=== PATIENT | female | born 1990 | race Caucasian/White ===

== ENCOUNTER 2020-07-01 20:25 | Emergency (ER) | payer OTHER, MEDICAID, SELFPAY ==
[2020-07-01 20:30] VITALS: BP 129/80; PULSE 82; RESP 15; TEMP 36.8; O2SAT 100; BMI 41.7
[2020-07-01 21:18] LABS: COVID19 -Nasal RAPID Negative (Negative)
--- NOTE | 2020-07-01 21:27 | ED.GENADULT ---
HPI - General Adult General Chief complaint: Upper Respiratory Symptoms Stated complaint: says has streep, chills, body aches Time Seen by Provider: 07/01/20 20:35 Source: patient Mode of arrival: Ambulatory Limitations: no limitations Related Data Allergies Allergy/AdvReac Type Severity Reaction Status Date / Time morphine Allergy Verified 07/01/20 20:32 Patient History Social History Smoking Status: Unknown if ever smoked Smoking Status: Unknown if ever smoked alcohol intake frequency: holidays/special occasions only Substance Use Type: does not use Exam Initial Vital Signs Initial Vital Signs: Vital Signs Temperature 98.3 F 07/01/20 20:30 Pulse Rate 82 07/01/20 20:30 Respiratory Rate 15 07/01/20 20:30 Blood Pressure 129/80 07/01/20 20:30 Pulse Oximetry 100 07/01/20 20:30 Course Orders Ordered: ED Orders 07/01/20 20:59 COVID19 Stat Vital Signs Vital signs: Vital Signs - 8 hr 07/01/20 20:30 Temperature 98.3 F Pulse Rate 82 Respiratory Rate 15 Blood Pressure 129/80 Pulse Oximetry 100 Medical Decision Making Lab Data Labs: Lab Results 07/01/20 Range/Units 20:30 COVID-19 PCR Negative (Negative)
--- NOTE | 2020-07-01 21:27 | ED.GENADULT ---
HPI - General Adult General Chief complaint: Upper Respiratory Symptoms Stated complaint: says has streep, chills, body aches Time Seen by Provider: 07/01/20 20:35 Source: patient Mode of arrival: Ambulatory Limitations: no limitations History of Present Illness HPI narrative: 30-year-old female who 2 days ago was diagnosed with strep throat off of a rapid strep test who has been on antibiotics here for evaluation of worsening symptoms. She describes sore throat. Problems taking a deep breath. Chills body aches. Has not been taking Tylenol or ibuprofen for any of her symptoms. Related Data Allergies Allergy/AdvReac Type Severity Reaction Status Date / Time morphine Allergy Verified 07/01/20 20:32 Review of Systems Constitutional Constitutional: Denies fever(s) ENT Ears, Nose, Mouth, and Throat: Reports sore throat Cardiovascular Cardiovascular: Denies chest pain Respiratory Comments: Shortness of breath Integumentary/Breasts Skin/Breast: Denies rash Neurologic Neurologic: Denies behavioral changes Psychiatric Psychiatric: Denies behavioral changes Hematologic/Lymphatic Hematologic/Lymphatic: Denies easy bleeding and Denies easy bruising Patient History Medical History Healthy adult Social History Smoking Status: Unknown if ever smoked Smoking Status: Unknown if ever smoked alcohol intake frequency: holidays/special occasions only Substance Use Type: does not use Exam Initial Vital Signs Initial Vital Signs: Vital Signs Temperature 98.3 F 07/01/20 20:30 Pulse Rate 82 07/01/20 20:30 Respiratory Rate 15 07/01/20 20:30 Blood Pressure 129/80 07/01/20 20:30 Pulse Oximetry 100 07/01/20 20:30 Const General: cooperative and comfortable Limitations: mental status not altered HENMT Head: normal to inspection and normocephalic Mouth: oral mucosae normal Throat: tonisls abnormal (Large tonsils but midline) and uvula midline Neck Lymphatic: No lymphadenopathy Resp Effort & Inspection: normal respiratory effort Auscultation: clear to auscultation bilaterally Cardio Rate: regular rate Neuro General: patient alert, patient awake and patient oriented x3 Course Orders Ordered: ED Orders 07/01/20 20:30 COVID19 Stat Discontinued Medications Dexamethasone (Dexamethasone 10 Mg/Ml Vial) 10 mg PO NOW ONE Stop: 07/01/20 21:28 Last Admin: 07/01/20 21:48 Dose: 10 mg Documented by: NATA Ketorolac Tromethamine (Ketorolac 60 Mg/2 Ml Vial) 30 mg IM NOW ONE Stop: 07/01/20 21:28 Last Admin: 07/01/20 21:49 Dose: 30 mg Documented by: NATA Vital Signs Vital signs: Vital Signs - 8 hr 07/01/20 20:30 07/01/20 22:03 Temperature 98.3 F Pulse Rate 82 82 Respiratory Rate 15 12 Blood Pressure 129/80 123/81 Pulse Oximetry 100 100 Medical Decision Making Lab Data Lab results reviewed: Yes I reviewed the patient's lab results. Labs: Lab Results 07/01/20 Range/Units 20:30 COVID-19 PCR Negative (Negative) MDM Narrative Medical decision making narrative: She has no respiratory distress. Uvula is midline. Tonsils are enlarged however of low suspicion for peritonsillar abscess. Currently on antibiotics for the strep throat. Feel we can hold on any radiologic studies. We did discuss use of Tylenol and ibuprofen for her symptoms. Was given Toradol and Decadron here in the ER. She was given return precautions. She expressed understanding and agreement. Discharge Plan Departure Patient Disposition: Home Clinical Impression: Acute streptococcal pharyngitis Instructions: DI for Strep Throat Activity Restrictions/Additional Instructions: Recommend that you continue with Tylenol and ibuprofen for body aches and fevers. The dose of steroids you received here in the emergency department does take a couple hours to kick in but should help your symptoms. Be sure to increase your fluid intake. Return to the emergency department for any new or worsening symptoms
[2020-07-01] MEDS: DEXAMETHASONE 10 MG/ML VIAL PO (21:48)
[2020-07-01] MEDS: KETOROLAC 60 MG/2 ML VIAL 30 MG IM (21:49)
[2020-07-01 22:03] VITALS: BP 123/81; PULSE 82; RESP 12; O2SAT 100
== END 2020-07-01 22:06 | disposition home or self-care (01) ==
PROVIDERS: Emergency Provider Emergency Medicine
DX: J02.0 Streptococcal pharyngitis (principal)
CPT/HCPCS: 87635; 96372; 99281; 99283; J1100; J1885

== ENCOUNTER 2020-10-07 18:13 | Emergency (ER) | payer OTHER, MEDICAID, SELFPAY ==
[2020-10-07 18:27] VITALS: BP 125/91; PULSE 79; RESP 12; TEMP 36.7; O2SAT 100; BMI 40.8
--- NOTE | 2020-10-07 18:33 | DI.RAD.S_ITS ---
PROCEDURE: XR FOOT LT MIN 3V INDICATIONS: left foot pain stepped wrong at work TECHNIQUE: 3 views of the foot were acquired. COMPARISON: None. FINDINGS: Bones: No acute fractures or dislocations. No suspicious bony lesions. Soft tissues: There is soft tissue swelling of the left forefoot. No tibiotalar joint effusion. Achilles tendon appears normal. IMPRESSION: Left forefoot soft tissue swelling without underlying fracture or dislocation. If there is persistent clinical concern for occult fracture given adequate mechanism of injury, consider repeat imaging in 10-14 days. Dictated by: Cristino Gutierres M.D. on 10/07/2020 at 19:06 Approved by: Cristino Gutierres M.D. on 10/07/2020 at 19:07
--- NOTE | 2020-10-07 18:37 | ED.LOWEXIN ---
HPI - Extremity Injury (Lower) General Chief Complaint: Extremity Injury, Lower Stated Complaint: injure left foot at work Time Seen by Provider: 10/07/20 18:15 Source: patient Mode of arrival: Ambulatory Limitations: no limitations History of Present Illness HPI Narrative: Patient is a 30-year-old female here for evaluation of pain on the top of her left foot. She states she was at work at the time when she lifted a box of soda and stepped wrong and had pain on the top of her left foot. Occurred earlier today. Has discomfort with walking. Has not tried anything for symptoms prior to arrival. Related Data Allergies Allergy/AdvReac Type Severity Reaction Status Date / Time morphine Allergy Intermediate Verified 10/07/20 18:30 Review of Systems Constitutional Constitutional: Denies fever(s) Musculoskeletal Musculoskeletal: Denies tingling Comments: Left foot pain Integumentary/Breasts Skin/Breast: Denies lesions and Denies rash Neurologic Neurologic: Denies tingling Patient History Medical History Healthy adult Social History Smoking Status: Former smoker Smoking Status: Former smoker alcohol intake frequency: holidays/special occasions only Substance Use Type: does not use Exam Initial Vital Signs Initial Vital Signs: Vital Signs Temperature 98.0 F 10/07/20 18:27 Pulse Rate 79 10/07/20 18:27 Respiratory Rate 12 10/07/20 18:27 Blood Pressure 125/91 H 10/07/20 18:27 Pulse Oximetry 100 10/07/20 18:27 Const General: cooperative and comfortable Limitations: mental status not altered HENCT Head: normal to inspection and normocephalic Cardio Pulses: dorsalis pedis present on the left Skin Lesions: no lesions Rashes: no rashes Neuro General: patient alert and patient awake Cognition: normal cognition Speech: speech normal Sensory Exam: no sensory deficits noted Extrem Other: Patient has tenderness to palpation throughout her left foot but specifically over the dorsum of the midfoot. Psych Appearance: well kempt Procedures Orthopedic Splinting/Casting Injury #1: Side: left Lower Extremity Injury Location: foot Lower Extremity Immobilizer: Brody wrap Post splinting neuro exam: intact Post splinting vascular exam: intact Placed by: Nursing Course Orders Ordered: ED Orders 10/07/20 18:33 XR foot LT min 3V Stat Vital Signs Vital signs: Vital Signs - 8 hr 10/07/20 18:27 10/07/20 19:42 Temperature 98.0 F Pulse Rate 79 72 Respiratory Rate 12 Blood Pressure 125/91 H 117/66 [address]ulse Oximetry [address] [facility] - Extremity Injury (Lower) Imaging Data Extremity x-ray #1: Radiologist's Impression: [address] [id number] ReportSigned Patient: Jasmina Finn AnneMR#: [id number]: 1990Acct:[id number]/Sex: 30 / FDate of Service: 10/07/20Loc: EDAccession Number: [id number] Procedure: XR foot LT min 3V Ordering Provider: Willis Madden D.O. PROCEDURE: XR FOOT LT MIN 3V INDICATIONS: left foot pain stepped wrong at work TECHNIQUE: 3 views of the foot were acquired. COMPARISON: None. FINDINGS: Bones: No acute fractures or dislocations. No suspicious bony lesions. Soft tissues: There is soft tissue swelling of the left forefoot. No tibiotalar joint effusion. Achilles tendon appears normal. IMPRESSION: Left forefoot soft tissue swelling without underlying fracture or dislocation. If there is persistent clinical concern for occult fracture given adequate mechanism of injury, consider repeat imaging in 10-14 days. Dictated by: Cristino Gutierres M.D. on 10/07/2020 at 19:06 Approved by: Cristino Gutierres M.D. on 10/07/2020 at 19:[address] [facility] Narrative Medical decision making narrative: No fractures on the x-ray, is neurovascularly intact, Brody bandage provided for comfort, patient can ambulate as needed. She was given return precautions and follow-up instructions. She expressed understanding and agreement. Discharge Plan Departure Patient Disposition: Home Clinical Impression: Acute pain of left foot Instructions: How To Perform RICE (Rest, Ice, Compress, Elevate) Activity Restrictions/Additional Instructions: There were no fractures noted on the x-rays. You can walk on your foot as tolerated. I recommend they use the Brody bandage as needed and for comfort. Keep your foot elevated. You can also ice your foot. You can use anti-inflammatories such as Motrin/Naprosyn/ibuprofen. Contact your primary provider for follow-up.
[2020-10-07 19:42] VITALS: BP 117/66; PULSE 72; O2SAT 100
== END 2020-10-07 19:43 | disposition home or self-care (01) ==
PROVIDERS: Emergency Provider Emergency Medicine
DX: M79.672 Pain in left foot (principal); Y99.0 Civilian activity done for income or pay
CPT/HCPCS: 73630; 99283

== ENCOUNTER 2021-01-17 21:57 | Emergency (ER) | payer OTHER, MEDICAID, SELFPAY ==
[2021-01-17 22:18] VITALS: BP 158/63; PULSE 99; RESP 20; TEMP 36.5; O2SAT 97; BMI 41.1
[2021-01-17] MEDS: HYDROCODONE/ACET 5/325 PREPACK 1 BOTTLE MISC (23:45)
[2021-01-17] MEDS: DOXYCYCLINE HYCLATE 100 MG TABLET PO (23:45)
--- NOTE | 2021-01-17 23:48 | ED_ITS ---
HPI - Skin/Abscess/Foreign Bdy General Chief complaint: Skin/Abscess/Foreign Body Stated complaint: Abscess Time Seen by Provider: 01/17/21 23:20 Source: patient Mode of arrival: Ambulatory Limitations: no limitations History of Present Illness HPI narrative: 30-year-old female former smoker with noncontributory medical history presents with the painful ?lump? and deep on her left buttock this been there for the past few days. She has tried squeezing it getting any drainage out of it but has thus far been unsuccessful. She denies any pain with bowel movement. She has no fever chills and denies any history of abscess. She has increased pain with palpation and while sitting and improvement with rest. She has no systemic findings such as fever, chills nor nausea or vomiting MD complaint: abscess/boil Onset (ago): day(s) Tetanus up to date: yes Location: buttocks Severity: mild Quality: burning Pain Consistency: constant Relieving factors: rest Exacerbating factors: palpation Context: none Associated symptoms: denies other symptoms Treatments prior to arrival: none Related Data Previous Rx's Medication Instructions Recorded doxycycline hyclate 100 mg PO BID #20 tab 01/17/21 Allergies Allergy/AdvReac Type Severity Reaction Status Date / Time morphine Allergy Intermediate Verified 10/07/20 18:30 Review of Systems Constitutional Constitutional: Denies chills, Denies fatigue, Denies fever(s), Denies frequent falls, Denies lethargy and Denies weakness Eyes Eyes: Denies change in vision, Denies eye discharge, Denies irritation and Denies loss of vision ENT Ears, Nose, Mouth, and Throat: Denies change in voice, Denies dizziness, Denies neck pain, Denies sore throat and Denies throat swelling Cardiovascular Cardiovascular: Denies chest pain, Denies irregular heart rhythm, Denies lightheadedness, Denies palpitations, Denies dyspnea, Denies dyspnea on exertion and Denies orthopnea Respiratory Respiratory: Denies cough, Denies dyspnea, Denies dyspnea on exertion and Denies wheezing Gastrointestinal Gastrointestinal: Denies abdominal pain, Denies change in bowel habits, Denies diarrhea, Denies nausea and Denies vomiting Musculoskeletal Musculoskeletal: Denies neck pain and Denies numbness Integumentary/Breasts Skin/Breast: Denies pruritus, Denies erythema, Denies rash, Reports skin pain, Reports skin swelling and Reports wounds Neurologic Neurologic: Denies behavioral changes, Denies confusion, Denies dizziness, Denies frequent falls, Denies loss of vision, Denies numbness and Denies weakness Psychiatric Psychiatric: Denies anxiety, Denies behavioral changes, Denies confusion, Denies depression, Denies homicidal ideation and Denies suicidal ideation Endocrine Endocrine: Denies fatigue, Denies flushing and Denies palpitations Hematologic/Lymphatic Hematologic/Lymphatic: Denies easy bruising Allergic/Immunologic Allergic/Immunologic: Denies urticaria, Denies throat swelling and Denies wheezing Patient History Medical History Healthy adult Social History Smoking Status: Former smoker Smoking Status: Former smoker alcohol intake frequency: holidays/special occasions only Substance Use Type: marijuana Exam Narrative Exam Narrative: GEN: AOx3 and in mild distress EYES: Pupils are equal, round, and reactive to light and accommodation. Extraoccular muscles are intact bilaterally. There is no subconjunctival hemorrhage or exudate. CHEST: Lungs are clear to auscultation bilaterally and free of wheezes, rales, or rhonchi. Heart rate is regular rhythm, there are no murmurs, clicks, rubs, or gallops. There is no chest wall tenderness. ABD: Abdomen is soft and nontender. There is no guarding or rebound. Bowel sounds are normal in all 4 quadrants. There is no mass or organomegaly. RECTAL: No hernia noted, tender 1 x 3 cm lesion on left buttock with out fluctuance or drainage, no surrounding erythema or induration, no hernia, no involvement of the rectum EXT: Full painless ROM of all extremities with no loss of sensation or strength. SKIN: Warm, pink, and dry. No erythema or rash Initial Vital Signs Initial Vital Signs: Vital Signs Temperature 97.7 F 01/17/21 22:18 Pulse Rate 99 H 01/17/21 22:18 Respiratory Rate 20 01/17/21 22:18 Blood Pressure 158/63 H 01/17/21 22:18 Pulse Oximetry 97 01/17/21 22:18 Course Orders Ordered: Discontinued Medications Hydrocodone Bitart/Acetaminophen (Hydrocodone/Acet 5/325 Prepack) 1 bottle MISC SEEINSTR ONE Stop: 01/17/21 23:38 Last Admin: 01/17/21 23:45 Dose: 1 bottle Documented by: SHAUN Doxycycline Hyclate (Doxycycline Hyclate 100 Mg Tablet) 100 mg PO NOW ONE Stop: 01/17/21 23:38 Last Admin: 01/17/21 23:45 Dose: 100 mg Documented by: SHAUN Vital Signs Vital signs: Vital Signs - 8 hr 01/17/21 22:18 01/17/21 23:58 Temperature 97.7 F Pulse Rate 99 H 89 Respiratory Rate 20 16 Blood Pressure 158/63 H 131/74 Pulse Oximetry 97 100 Discharge Plan Departure Patient Disposition: Home Clinical Impression: Abscess of skin or subcutaneous tissue Qualifiers: Site of cutaneous abscess: buttock Qualified Code(s): L02.31 - Cutaneous abscess of buttock Instructions: DI for Skin Abscess Activity Restrictions/Additional Instructions: *You have been diagnosed with [superficial abscess left buttock] *What to do: *Please continue to take your regular medications as directed. [ x] New medication prescriptions sent to your pharmacy: [[facility] in [facility] ] [ ] New medication written as a paper prescription [ ] No new medications given *Please follow up with your primary care provider in 2-3 days, call for an appointment. Let them know you were seen in the Emergency Department and that we ask that you be seen in follow up. We will electronically transmit a record of today's note if your PCP is in our system *If you do not have a primary care provider please contact the [facility] Resource line at [phone]. They will ask some questions about your medical history and help get you set up with a doctor in the community. *Return to Emergency Department if you should have any new, worsening or concerning symptoms, such as [fever greater than 101 F, shaking chills, worsening pain, persistent vomiting or other bothersome symptoms] Prescriptions: New doxycycline hyclate 100 mg tablet 100 mg PO BID Qty: 20 RF: 0
[2021-01-17 23:58] VITALS: BP 131/74; PULSE 89; RESP 16; O2SAT 100
--- NOTE | 2021-01-17 23:58 | PC.NURSE ---
Electronic prescription did not transmit. Prescription called in to [facility].
== END 2021-01-17 23:50 | disposition home or self-care (01) ==
PROVIDERS: Emergency Provider Emergency Medicine
DX: L02.31 Cutaneous abscess of buttock (principal)
CPT/HCPCS: 99283

== ENCOUNTER 2021-02-22 19:23 | Emergency (ER) | payer OTHER, MEDICAID, SELFPAY ==
[2021-02-22 19:31] VITALS: BP 118/67; PULSE 85; RESP 18; TEMP 36.6; O2SAT 100; BMI 41.5
--- NOTE | 2021-02-22 19:36 | DI.RAD.S_ITS ---
PROCEDURE: XR KNEE LT 3V INDICATIONS: pain TECHNIQUE: 3 views of the knee were acquired. COMPARISON: None. FINDINGS: Bones: No fractures or dislocations. No suspicious bony lesions. Soft tissues: Small to moderate suprapatellar joint effusion is seen. No suspicious soft tissue calcifications. IMPRESSION: No acute left knee fracture or dislocation. Small to moderate suprapatellar joint effusion. Dictated by: Bruce Keller M.D. on 02/22/2021 at 20:50 Approved by: Bruce Keller M.D. on 02/22/2021 at 20:50
--- NOTE | 2021-02-22 20:02 | ED.LOWEXIN ---
HPI - Extremity Injury (Lower) General Chief Complaint: Extremity Injury, Lower Stated Complaint: lt knee pain, no known injury Time Seen by Provider: 02/22/21 19:57 Source: patient Mode of arrival: Ambulatory Limitations: no limitations History of Present Illness HPI Narrative: Patient here with boyfriend complains of left knee pain. Ongoing for 1 week. Patient is on her feet a lot at work. Also has kids at home that she does a lot of bending and twisting at the knee. Ongoing pain worsened today felt worsening. No numbness tingling weakness to the foot. Painful with active flexion extension of the knee. No prior injury to the knee or surgery or imaging. Related Data Previous Rx's Medication Instructions Recorded doxycycline hyclate 100 mg tablet 100 mg PO BID #20 tab 01/17/21 hydrocodone 5 mg-acetaminophen 325 1 tab PO Q6H PRN #7 tab 02/22/21 mg tablet ondansetron 4 mg disintegrating 4 mg PO Q8H PRN #10 tab 02/22/21 tablet Allergies Allergy/AdvReac Type Severity Reaction Status Date / Time morphine Allergy Intermediate Verified 02/22/21 19:31 Review of Systems Review of Systems Narrative: GENERAL: Denies chills, fatigue, malaise, fever, sweats. MUSCULOSKELETAL: denies muscle complains bony pain SKIN: Denies rash, skin lesions NEUROLOGIC: Denies weakness, numbness Patient History Medical History Healthy adult Social History Smoking Status: Former smoker Smoking Status: Former smoker alcohol intake frequency: holidays/special occasions only Substance Use Type: marijuana Exam Narrative Exam Narrative: GENERAL: in no distress, not toxic not dyspneic HEAD: Normocephalic. EXTREMITIES: No gross deformities. Examination left lower extremity. Shoe and sock off air foot warm soft and pink with light touch intact to foot and toes. Ankle and left hip nontender. Patient able to actively flex left knee to 90?. There is pain but no laxity of the knee with anterior posterior medial lateral rotational stress of the left leg. NEURO: AOx4. SKIN: Warm and dry PSYCH: Not anxious, is cooperative Initial Vital Signs Initial Vital Signs: Vital Signs Temperature 97.8 F 02/22/21 19:31 Pulse Rate 85 02/22/21 19:31 Respiratory Rate 18 02/22/21 19:31 Blood Pressure 118/67 02/22/21 19:31 Pulse Oximetry 100 02/22/21 19:31 Course Course Course Narrative: No new issues during course of stay Orders Ordered: Discontinued Medications Hydrocodone Bitart/Acetaminophen (Hydrocodone/Acet 5/325 Tablet) 2 tab PO NOW ONE Stop: 02/22/21 20:03 Last Admin: 02/22/21 20:10 Dose: 2 tab Documented by: BETH Ondansetron HCl (Ondansetron 4 Mg Odt) 4 mg SL NOW ONE Stop: 02/22/21 20:03 Last Admin: 02/22/21 20:10 Dose: 4 mg Documented by: BETH Reevaluation(s) Reevaluation #1: Pain controlled with pain medication here. Reviewed results with patient and boyfriend. Return precautions reviewed. Agree with treatment plan. Exam reassuring. Referral for Orthopedics given. Patient does have a family doctor to see and scheduled for MRI of the knee Time: 21:32 Vital Signs Vital signs: Vital Signs - 8 hr 02/22/21 19:31 Temperature 97.8 F Pulse Rate 85 Respiratory Rate 18 Blood Pressure 118/67 Pulse Oximetry 100 MDM - Extremity Injury (Lower) Imaging Data Extremity x-ray #1: Radiologist's Impression: [address] [id number] ReportSigned Patient: Jasmina Boone AnneMR#: [id number]: [id number]:[id number]/Sex: 30 / FDate of Service: 02/22/21Loc: EDAccession Number: [id number] Procedure: XR knee LT 3V Ordering Provider: Atif Salguero MD PROCEDURE: XR KNEE LT 3V INDICATIONS: pain TECHNIQUE: 3 views of the knee were acquired. COMPARISON: None. FINDINGS: Bones: No fractures or dislocations. No suspicious bony lesions. Soft tissues: Small to moderate suprapatellar joint effusion is seen. No suspicious soft tissue calcifications. IMPRESSION: No acute left knee fracture or dislocation. Small to moderate suprapatellar joint effusion. Dictated by: Bruce Keller M.D. on 02/22/2021 at 20:50 Approved by: Bruce Keller M.D. on 02/22/2021 at 20:50 [facility] Narrative Medical decision making narrative: Appropriate discharge home exam and imaging reassuring. Return precautions reviewed with patient. Not toxic. Patient agrees with treatment plan. Discharge Plan Departure Patient Disposition: Home Clinical Impression: Acute knee pain Qualifiers: Laterality: left Qualified Code(s): M25.562 - Pain in left knee Instructions: DI for Knee Pain Activity Restrictions/Additional Instructions: Use Brody wrap and crutches for ambulation. Call provided orthopedic office or your see your family doctor to schedule MRI of her knee. Return if worse or any questions concerns. No driving or operating machine your tonight or when taking prescribed pain medication. Prescriptions: New hydrocodone-acetaminophen 5-325 mg tablet 1 tab PO Q6H PRN (Reason: pain) Qty: 7 RF: 0 ondansetron 4 mg tablet,disintegrating 4 mg PO Q8H PRN (Reason: nausea and vomiting) Qty: 10 RF: 0 No Action doxycycline hyclate 100 mg tablet 100 mg PO BID Qty: 20 RF: 0 Referrals: Manisha Camp MD [Physician] - Stand Alone Forms: Work Release Note
[2021-02-22] MEDS: HYDROCODONE/ACET 5/325 TABLET 2 TAB PO (20:10)
[2021-02-22] MEDS: ONDANSETRON 4 MG ODT SL (20:10)
[2021-02-22 22:04] VITALS: BP 121/78; PULSE 68; RESP 18; O2SAT 100
== END 2021-02-22 22:05 | disposition home or self-care (01) ==
PROVIDERS: Emergency Provider Emergency Medicine
DX: M25.562 Pain in left knee (principal)
CPT/HCPCS: 73562; 99283

== ENCOUNTER 2021-03-20 17:08 | Emergency (ER) | payer OTHER, MEDICAID, SELFPAY ==
[2021-03-20 17:15] VITALS: BP 134/65; PULSE 93; RESP 17; TEMP 36.9; O2SAT 100
--- NOTE | 2021-03-20 17:48 | ED_ITS ---
HPI - Skin/Abscess/Foreign Bdy <Juma Walton PA-C - Last Filed: 03/20/21 19:52> General Chief complaint: Skin/Abscess/Foreign Body Stated complaint: LUMP REDNESS ON LEFT ARM NUMBNESS Time Seen by Provider: 03/20/21 17:32 Source: patient Mode of arrival: Ambulatory History of Present Illness HPI narrative: Jasmina presents today with chief complaint of left armpit erythema and swelling that started 2 days ago. She reports that this has given her sensation of numbness and heaviness in her left arm. She reports that she has had these before but they have not been able to find out why she gets them. She denies any significant fever, chest pain, shortness of breath, headache, drainage, joint pain or any other acute concerns or complaints at this time. Related Data Previous Rx's Medication Instructions Recorded doxycycline hyclate 100 mg tablet 100 mg PO BID #20 tab 01/17/21 hydrocodone 5 mg-acetaminophen 325 1 tab PO Q6H PRN #7 tab 02/22/21 mg tablet ondansetron 4 mg disintegrating 4 mg PO Q8H PRN #10 tab 02/22/21 tablet Allergies Allergy/AdvReac Type Severity Reaction Status Date / Time morphine Allergy Intermediate Verified 03/20/21 17:56 Review of Systems <Juma Walton PA-C - Last Filed: 03/20/21 19:52> Review of Systems Narrative: As per HPI Patient History <Juma Walton PA-C - Last Filed: 03/20/21 19:52> Medical History Healthy adult Social History Smoking Status: Former smoker Smoking Status: Former smoker alcohol intake frequency: holidays/special occasions only Substance Use Type: marijuana Exam <Juma Walton PA-C - Last Filed: 03/20/21 19:52> Narrative Exam Narrative: Exam Narrative: Const General: cooperative, healthy appearing, comfortable, no acute distress, well developed and well groomed Nutritional Appearance: average body habitus Orientation: alert and oriented x3 HENMT Head: normal to inspection and atraumatic Ears: hearing grossly normal bilaterally Nose: external nose normal and nares normal Face and sinus: normal facial exam Neck Neck: normal visual inspection and supple Resp Effort & Inspection: normal respiratory effort, able to speak in complete sentences, no audible wheezes, not labored, no nasal flaring and no respiratory distress Neuro General: alert, oriented x3, gait normal, tone normal and moves all extremities Cognition: normal cognition Speech: speech normal Gait: normal gait Skin Left axilla inspected. Area of erythema noted approximately 12 cm long by 6 cm wide small area of fluctuance noted. Area was ultrasound and there was no obvious fluid collection. Extremities Upper extremities exposed. Full range of motion and full strength. Sensation is intact. Radial pulses are equal bilaterally. Psych Appearance: grossly normal and well kempt Mental Status: mental status grossly normal Speech and Movement: speech and movement normal Mood: congruent mood Affect: normal affect Initial Vital Signs Initial Vital Signs: Vital Signs Temperature 98.4 F 03/20/21 17:15 Pulse Rate 93 H 03/20/21 17:15 Respiratory Rate 17 03/20/21 17:15 Blood Pressure 134/65 03/20/21 17:15 Pulse Oximetry 100 03/20/21 17:15 <Chandan Louis MD - Last Filed: 03/31/21 07:26> Initial Vital Signs Initial Vital Signs: Vital Signs Temperature 98.4 F 03/20/21 17:15 Pulse Rate 93 H 03/20/21 17:15 Respiratory Rate 17 03/20/21 17:15 Blood Pressure 134/65 03/20/21 17:15 Pulse Oximetry 100 03/20/21 17:15 Course <Juma Walton PA-C - Last Filed: 03/20/21 19:52> Orders Ordered: Discontinued Medications Cephalexin HCl (Cephalexin 250 Mg Capsule) 500 mg PO NOW ONE Stop: 03/20/21 17:53 Last Admin: 03/20/21 17:57 Dose: 500 mg Documented by: FUAD Vital Signs Vital signs: Vital Signs - 8 hr 03/20/21 17:15 Temperature 98.4 F Pulse Rate 93 H Respiratory Rate 17 Blood Pressure 134/65 Pulse Oximetry 100 <Chandan Louis MD - Last Filed: 03/31/21 07:26> Orders Ordered: Discontinued Medications Cephalexin HCl (Cephalexin 250 Mg Capsule) 500 mg PO NOW ONE Stop: 03/20/21 17:53 Last Admin: 03/20/21 17:57 Dose: 500 mg Documented by: FUAD Vital Signs Vital signs: Vital Signs - 8 hr 03/20/21 17:15 Temperature 98.4 F Pulse Rate 93 H Respiratory Rate 17 Blood Pressure 134/65 Pulse Oximetry 100 MDM - Skin/Abscess/Foreign Bdy <Juma Walton PA-C - Last Filed: 03/20/21 19:52> [facility] Narrative Medical decision making narrative: Differential diagnosis includes abscess, lymphadenitis, necrotizing soft tissue infection, hidradenitis suppurativa. No obvious abscess noted on ultrasound. She has clinical findings that would suggest cellulitis. We will treat with antibiotics at this time and have her follow-up with her primary care provider. Because she has gotten recurrent infections, workup for hidradenitis may be indicated but that will be deferred to PCP. ER return precautions were discussed with the patient. Patient verbalizes understanding and agrees to plan and has no further concerns at this time. Thank you A [id number] system was used with the dictation of this note. Please disregard any spelling or grammatical errors. Discharge Plan Departure Patient Disposition: Home Clinical Impression: Cellulitis Qualifiers: Site of cellulitis: extremity Site of cellulitis of extremity: axilla Laterality: left Qualified Code(s): L03.112 - Cellulitis of left axilla Instructions: DI for Cellulitis -- Adult Activity Restrictions/Additional Instructions: It was nice to meet you this evening. Please take the antibiotics as recommended. Please follow-up with your primary care provider for further evaluation and treatment. I expect the symptoms to improve over the next 24-48 hours. Return precautions include spreading redness, increased pain, fever or any other new or worsening complaints. Thank you Juma Walton PA-C Prescriptions: No Action doxycycline hyclate 100 mg tablet 100 mg PO BID Qty: 20 RF: 0 hydrocodone-acetaminophen 5-325 mg tablet 1 tab PO Q6H PRN (Reason: pain) Qty: 7 RF: 0 ondansetron 4 mg tablet,disintegrating 4 mg PO Q8H PRN (Reason: nausea and vomiting) Qty: 10 RF: 0
[2021-03-20] MEDS: cephALEXin 250 MG CAPSULE 500 MG PO (17:57)
== END 2021-03-20 18:06 | disposition home or self-care (01) ==
PROVIDERS: Emergency Provider Physician Assistant
DX: L03.112 Cellulitis of left axilla (principal)
CPT/HCPCS: 99283

== ENCOUNTER 2021-04-13 19:05 | Emergency (ER) | payer OTHER, MEDICAID, SELFPAY ==
[2021-04-13 19:10] VITALS: BP 125/93; PULSE 87; RESP 18; TEMP 36.6; O2SAT 100
--- NOTE | 2021-04-13 20:23 | ED.GENADULT ---
HPI - General Adult General Chief complaint: Shortness of Breath/Dyspnea Stated complaint: SOB Time Seen by Provider: 04/13/21 20:01 Source: patient Mode of arrival: Ambulatory History of Present Illness HPI narrative: 30-year-old woman with a history of significant depression and anxiety with hospital admission in 2019 twice with significant depression presents today with increasing dyspnea, difficulty getting a complete breath feeling short of breath significant increased anxiety social stressors at work to the point that she was sent home early. She complains of chest pain the upper lung bernard and inability to get a deep breath. Increased emotional lability. She is crying feels overwhelmed, feels like she is a burden. 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 She has 3 children the younger to are twins. Was a year ago and shares 50 50 custody with the father of the baby living in [place]. She is post to have custody of the children until May. She states that she is not suicidal at this point. She complains of poor sleep part of it is simply lack of opportunity with the 3 small children and her work schedule of it she also notes that she has been having difficulty falling asleep as well. She currently is on duloxetine and Abilify. She sees Betty Roldan at [facility] in [place] and is almost done with a 6 month counseling program. Related Data Previous Rx's Medication Instructions Recorded doxycycline hyclate 100 mg tablet 100 mg PO BID #20 tab 01/17/21 hydrocodone 5 mg-acetaminophen 325 1 tab PO Q6H PRN #7 tab 02/22/21 mg tablet ondansetron 4 mg disintegrating 4 mg PO Q8H PRN #10 tab 02/22/21 tablet diazepam 5 mg tablet 5 mg PO DAILY #10 tab 04/13/21 Allergies Allergy/AdvReac Type Severity Reaction Status Date / Time morphine Allergy Intermediate Verified 03/20/21 17:56 Review of Systems Review of Systems Narrative: Remainder of complete review of systems is otherwise unremarkable except for that included in the HPI. Patient History Medical History (Updated 04/13/21 @ 23:06 by Kacie Elder MD) Depression with anxiety Healthy adult Social History Smoking Status: Former smoker Smoking Status: Former smoker alcohol intake frequency: holidays/special occasions only Substance Use Type: marijuana Exam Narrative Exam Narrative: General: Emotionally labile, tearful but Able to give a complete and coherent history. Well-nourished well-developed HEENT: Moist mucous membranes, normal sclera with reactive pupils, Respiratory: Clear to auscultation, no wheezing no rales no rhonchi. She has difficulty fully expanding her chest and can not hold been a deep inspiration. Cardiac: Regular rate and rhythm no murmurs no bruits Abdomen: Soft, nontender, good bowel tones, no flank pain Skin: Warm and dry, no rashes Neurologic: Grossly neurologically intact with no obvious asymmetries or abnormalities Extremities: No trauma, well perfused Psych: Cooperative, anxious and tearful, fluent speech pattern Initial Vital Signs Initial Vital Signs: Vital Signs Temperature 97.8 F 04/13/21 19:10 Pulse Rate 87 04/13/21 19:10 Respiratory Rate 18 04/13/21 19:10 Blood Pressure 125/93 H 04/13/21 19:10 Pulse Oximetry 100 04/13/21 19:10 Course Orders Ordered: ED Orders 04/13/21 20:24 XR chest 1V Stat EKG-12 Lead Stat 04/13/21 20:45 Complete Blood Count AUTO DIFF Stat Comprehensive Metabolic Panel Stat D Dimer Stat Thyroid Stimulating Hormone Stat Troponin I Stat 04/13/21 21:15 COVID19 -Nasal swab/Pre-Proc Stat Discontinued Medications Diazepam (Diazepam 5 Mg Tablet) 5 mg PO NOW ONE Stop: 04/13/21 20:24 Last Admin: 04/13/21 20:49 Dose: 5 mg Documented by: MURPHY Vital Signs Vital signs: Vital Signs - 8 hr 04/13/21 19:10 04/13/21 21:35 Temperature 97.8 F Pulse Rate 87 84 Respiratory Rate 18 18 Blood Pressure 125/93 H 127/77 Pulse Oximetry 100 100 Medical Decision Making Lab Data Result diagrams: 04/13/21 20:45 04/13/21 20:45 Labs: Lab Results 04/13/21 04/13/21 04/13/21 Range/Units 20:45 20:45 20:45 WBC 10.7 (4.5-11.0) X10^3/uL RBC 4.42 (4.0-5.2) X10^6/uL Hgb 11.9 L (12.0-16.0) g/dL Hct 36.3 (36-46) % MCV 82.2 (80-100) fL MCH 26.9 (26-34) PG MCHC 32.7 (30-36) % RDW 15.4 H (11.6-14.8) % Plt Count 515 H (150-400) X10^3/uL Neut % (Auto) 58.0 (50-75) % Lymph % (Auto) 33.0 (25-40) % Cooke % (Auto) 7.1 (3-14) % Eos % (Auto) 1.1 L (2-4) % Baso % (Auto) 0.8 (0-2) % Neut # (Auto) 6200 (8389-9642) /uL Lymph # (Auto) 3500 (6622-3984) /uL Cooke # (Auto) 800 (0-900) /uL Eos # (Auto) 100 (0-450) /uL Baso # (Auto) 100 (0-100) /uL D-Dimer 205 (<230) ng/mL Sodium 140 (137-145) mmol/L Potassium 3.5 (3.4-5.1) mmol/L Chloride 103 (98-107) mmol/L Carbon Dioxide 31 (22-32) mmol/L BUN 17 (7-17) mg/dL Creatinine 0.44 L (0.52-1.04) mg/dL Estimated GFR > 60.0 (>60) mL/min BUN/Creatinine Ratio 38.6 H (6-22) Glucose 83 (70-100) mg/dL Calcium 9.2 (8.4-10.2) mg/dL Total Bilirubin 0.2 (0.2-1.3) mg/dL AST 21 (14-36) IU/L ALT 16 (<35) IU/L Alkaline Phosphatase 83 (38-126) U/L Troponin I (0.01-0.034) ng/mL Total Protein 7.5 (6.3-8.2) g/dL Albumin 4.2 (3.5-5.0) g/dL Globulin 3.3 (1.7-4.1) g/dL Albumin/Globulin Ratio 1.3 (1.0-2.8) TSH (0.47-4.68) uIU/mL SARS-CoV-2 (PCR) (Negative) 04/13/21 04/13/21 04/13/21 Range/Units 20:45 20:45 21:15 WBC (4.5-11.0) X10^3/uL RBC (4.0-5.2) X10^6/uL Hgb (12.0-16.0) g/dL Hct (36-46) % MCV (80-100) fL MCH (26-34) PG MCHC (30-36) % RDW (11.6-14.8) % Plt Count (150-400) X10^3/uL Neut % (Auto) (50-75) % Lymph % (Auto) (25-40) % Cooke % (Auto) (3-14) % Eos % (Auto) (2-4) % Baso % (Auto) (0-2) % Neut # (Auto) (6907-6964) /uL Lymph # (Auto) (2219-4702) /uL Cooke # (Auto) (0-900) /uL Eos # (Auto) (0-450) /uL Baso # (Auto) (0-100) /uL D-Dimer (<230) ng/mL Sodium (137-145) mmol/L Potassium (3.4-5.1) mmol/L Chloride (98-107) mmol/L Carbon Dioxide (22-32) mmol/L BUN (7-17) mg/dL Creatinine (0.52-1.04) mg/dL Estimated GFR (>60) mL/min BUN/Creatinine Ratio (6-22) Glucose (70-100) mg/dL Calcium (8.4-10.2) mg/dL Total Bilirubin (0.2-1.3) mg/dL AST (14-36) IU/L ALT (<35) IU/L Alkaline Phosphatase (38-126) U/L Troponin I < 0.012 (0.01-0.034) ng/mL Total Protein (6.3-8.2) g/dL Albumin (3.5-5.0) g/dL Globulin (1.7-4.1) g/dL Albumin/Globulin Ratio (1.0-2.8) TSH 3.34 (0.47-4.68) uIU/mL SARS-CoV-2 (PCR) Negative (Negative) Imaging Data Chest x-ray: Radiologist's Impression: FINDINGS: Surgical changes and devices: None. Lungs and pleura: Lungs are clear. No pleural effusions or pneumothorax. Mediastinum: Mediastinal contours appear normal. Heart size is normal. Bones and chest wall: No suspicious bony lesions. Overlying soft tissues appear unremarkable. IMPRESSION: No acute cardiopulmonary pathology. Dictated by: Bruce Keller M.D. on 04/13/2021 at 20:50 ECG Data Interpretation: Sinus rhythm at a rate of 83 Normal intervals, normal axis No acute ischemic changes MDM Narrative Medical decision making narrative: 30-year-old woman with anxiety and depression significant social stressors adding of. Had an overwhelming day today. Not actively suicidal or homicidal. Lab work was reassuring. She has responded nicely to 5 mg of oral diazepam. On re-examination we discussed the possibility of staying overnight talk to a geriatric social work professor tomorrow with the possibility of finding a voluntary inpatient bed. Other option was brief bridging prescription of diazepam and call both her counselor and her primary care doctor tomorrow to see if she can increase services as an outpatient. At this time, she was more comfortable with the outpatient option and I believe that this is safe. She will be given a prescription for 10 tablets of diazepam and encouragement to return to the ER if things remain overwhelming. Discharge Plan Departure Patient Disposition: Home Clinical Impression: Depression with anxiety Instructions: DI for Depression -- Adult Activity Restrictions/Additional Instructions: Thank you for coming in today. Your blood work was very reassuring. There is no evidence of pneumonia, COVID, collapsed lung, heart attack, blood clots in your lungs or other life-threatening explanation to explain your acute shortness of breath today. I do think that it very likely is related to stress and your overall depression and anxiety. Your responded nicely to 5 mg of diazepam/Valium here in the emergency department to help with your acute anxiety. This medicine can be a nice bridging medication but is not a long-term solution. The prescription was electronically transmitted to [facility] in [place] Going to discharge her home today with a brief prescription of diazepam for you to use over the next couple of days. I do want you to contact both your primary care provider to talk about possibly increasing or changing medications as well as your counselor to talk about the possibility of a more urgent visit and possibly increasing overall counseling. If you find that things are continuing to worsen, please feel free to return to the ER and we are happy to help Prescriptions: New diazepam 5 mg tablet 5 mg PO DAILY Qty: 10 RF: 0 No Action doxycycline hyclate 100 mg tablet 100 mg PO BID Qty: 20 RF: 0 hydrocodone-acetaminophen 5-325 mg tablet 1 tab PO Q6H PRN (Reason: pain) Qty: 7 RF: 0 ondansetron 4 mg tablet,disintegrating 4 mg PO Q8H PRN (Reason: nausea and vomiting) Qty: 10 RF: 0 Referrals: Maria Antonia Moser, [Primary Care Provider] -
--- NOTE | 2021-04-13 20:24 | DI.RAD.S_ITS ---
PROCEDURE: XR CHEST 1V INDICATIONS: acute dyspnea TECHNIQUE: One view of the chest was acquired. COMPARISON: None. FINDINGS: Surgical changes and devices: None. Lungs and pleura: Lungs are clear. No pleural effusions or pneumothorax. Mediastinum: Mediastinal contours appear normal. Heart size is normal. Bones and chest wall: No suspicious bony lesions. Overlying soft tissues appear unremarkable. IMPRESSION: No acute cardiopulmonary pathology. Dictated by: Bruce Keller M.D. on 04/13/2021 at 20:50 Approved by: Bruce Keller M.D. on 04/13/2021 at 20:50
[2021-04-13 20:49] LABS: Add Manual Diff / Slide Review NO; Basophils Absolute Auto 100 /uL (0-100); Basophils Percent Auto 0.8 % (0-2); Eosinophils Absolute Auto 100 /uL (0-450); Eosinophils Percent Auto 1.1 % (2-4); Hematocrit 36.3 % (36-46); Hemoglobin 11.9 g/dL (12.0-16.0); Lymphocytes Absolute Auto 3500 /uL (1100-4500); Mean Corpuscular HGB Conc 32.7 % (30-36); Mean Corpuscular Hemoglobin 26.9 PG (26-34); Mean Corpuscular Volume 82.2 fL (80-100); Monocytes Absolute Auto 800 /uL (0-900); Monocytes Percent Auto 7.1 % (3-14); Neutrophils Absolute Auto 6200 /uL (1500-7000); Platelet Count 515 X10^3/uL (150-400); Red Blood Cell Count 4.42 X10^6/uL (4.0-5.2); Red Cell Distribution Width 15.4 % (11.6-14.8); White Blood Cell Count 10.7 X10^3/uL (4.5-11.0)
[2021-04-13] MEDS: diazePAM 5 MG TABLET PO (20:49)
[2021-04-13 21:04] LABS: D Dimer 205 ng/mL (<230)
[2021-04-13 21:05] LABS: Alanine Aminotransferase 16 IU/L (<35); Albumin 4.2 g/dL (3.5-5.0); Albumin Globulin Ratio 1.3 (1.0-2.8); Alkaline Phosphatase 83 U/L (38-126); Aspartate Aminotransferase 21 IU/L (14-36); BUN Creatinine Ratio 38.6 (6-22); Bilirubin Total 0.2 mg/dL (0.2-1.3); Blood Urea Nitrogen 17 mg/dL (7-17); Calcium 9.2 mg/dL (8.4-10.2); Carbon Dioxide 31 mmol/L (22-32); Chloride 103 mmol/L (98-107); Estimated Glomerular Filt Rate > 60.0 mL/min (>60); Globulin 3.3 g/dL (1.7-4.1); Glucose 83 mg/dL (70-100); HEMOLYSIS < 15 (0-50); Potassium 3.5 mmol/L (3.4-5.1); Sodium 140 mmol/L (137-145); Total Protein 7.5 g/dL (6.3-8.2)
[2021-04-13 21:16] LABS: Troponin I < 0.012 ng/mL (0.01-0.034)
[2021-04-13 21:35] VITALS: BP 127/77; PULSE 84; RESP 18; O2SAT 100
[2021-04-13 21:36] LABS: Thyroid Stimulating Hormone 3.34 uIU/mL (0.47-4.68)
[2021-04-13 21:42] LABS: COVID19 -Nasal RAPID Negative (Negative)
[2021-04-13 23:14] VITALS: BP 143/79; PULSE 74; RESP 18; O2SAT 99
== END 2021-04-13 23:14 | disposition home or self-care (01) ==
PROVIDERS: Emergency Provider Emergency Medicine; PCP Family Medicine
DX: F32.9 Major depressive disorder, single episode, unspecified (principal); F41.9 Anxiety disorder, unspecified; Z20.822 Contact with and (suspected) exposure to COVID-19
CPT/HCPCS: 36415; 71045; 80053; 84443; 84484; 85025; 85379; 87635; 93005; 93010; 99283; 99284; C9803

== ENCOUNTER 2021-04-18 14:03 | Emergency (ER) | payer OTHER, MEDICAID, SELFPAY ==
[2021-04-18 14:08] VITALS: BP 134/71; PULSE 86; RESP 22; TEMP 37.1; O2SAT 99
[2021-04-18 14:36] LABS: COVID19 -Nasal RAPID Negative (Negative)
--- NOTE | 2021-04-18 15:56 | ED_ITS ---
HPI - Recheck/Abnormal Lab/Rx General Chief Complaint: Recheck/Abnormal Lab/Rx Stated Complaint: Revisit, SOB, pcp wants rapid test Time Seen by Provider: 04/18/21 15:47 Source: patient Mode of arrival: Ambulatory History of Present Illness HPI narrative: Patient is a 30-year-old female. Has had approximately 1 week of a cough. No fevers. She is vaccinated against COVID-19. Was seen here in the emergency department approximately 1 week ago. Had a negative COVID test. Was told that this is a panic attack. She states that her symptoms have continued. She contacted her primary doctor who wanted her to come to the emergency depar tment for a repeat COVID test. Related Data Previous Rx's Medication Instructions Recorded doxycycline hyclate 100 mg tablet 100 mg PO BID #20 tab 01/17/21 hydrocodone 5 mg-acetaminophen 325 1 tab PO Q6H PRN #7 tab 02/22/21 mg tablet ondansetron 4 mg disintegrating 4 mg PO Q8H PRN #10 tab 02/22/21 tablet diazepam 5 mg tablet 5 mg PO DAILY #10 tab 04/13/21 Allergies Allergy/AdvReac Type Severity Reaction Status Date / Time morphine Allergy Intermediate Verified 03/20/21 17:56 Review of Systems Constitutional Constitutional: Denies fever(s) and Denies headache(s) ENT Ears, Nose, Mouth, and Throat: Denies headache(s), Denies sinus pressure and Denies sore throat Cardiovascular Cardiovascular: Denies chest pain and Denies dyspnea Respiratory Respiratory: Reports cough and Denies dyspnea Gastrointestinal Gastrointestinal: Reports system reviewed and no additional complaints, except as documented Genitourinary Genitourinary: Reports system reviewed and no additional complaints, except as documented Musculoskeletal Musculoskeletal: Reports system reviewed and no additional complaints, except as documented Integumentary/Breasts Skin/Breast: Reports system reviewed and no additional complaints, except as documented Neurologic Neurologic: Reports system reviewed and no additional complaints, except as documented and Denies headache(s) Psychiatric Psychiatric: Reports system reviewed and no additional complaints, except as documented and Denies anxiety Endocrine Endocrine: Reports system reviewed and no additional complaints, except as documented Hematologic/Lymphatic On Anticoagulants: No Allergic/Immunologic Allergic/Immunologic: Reports system reviewed and no additional complaints, except as documented Patient History Medical History Depression with anxiety Healthy adult Social History Smoking Status: Former smoker Smoking Status: Former smoker alcohol intake frequency: holidays/special occasions only Substance Use Type: marijuana Exam Initial Vital Signs Initial Vital Signs: Vital Signs Temperature 98.7 F 04/18/21 14:08 Pulse Rate 86 04/18/21 14:08 Respiratory Rate 22 04/18/21 14:08 Blood Pressure 134/71 04/18/21 14:08 Pulse Oximetry 99 04/18/21 14:08 Const General: cooperative, healthy appearing and comfortable HENMT Head: normal to inspection and normocephalic Eyes General: appearance normal, both eyes and all related structures Resp Effort & Inspection: normal respiratory effort and no cough Auscultation: clear to auscultation bilaterally Cardio Rate: regular rate Rhythm: regular rhythm GI Inspection: non-distended Palpation: soft and No tender Back/Spine/Pelvis Back: normal to inspection Skin General: no rashes or lesions noted Lesions: no lesions Rashes: no rashes Neuro General: patient alert, patient awake, patient oriented x3 and moves all extremities Extrem General: normal to inspection and capillary refill normal Course Orders Ordered: ED Orders 04/18/21 14:15 COVID19 -Nasal swab/Pre-Proc Stat Vital Signs Vital signs: Vital Signs - 8 hr 04/18/21 14:08 04/18/21 16:01 Temperature 98.7 F Pulse Rate 86 78 Respiratory Rate 22 17 Blood Pressure 134/71 122/76 Pulse Oximetry 99 98 MDM - Recheck/Abnormal Lab/Rx Lab Data Attestation: I reviewed the patient's lab results. Labs: Lab Results 04/18/21 Range/Units 14:15 SARS-CoV-2 (PCR) Negative (Negative) MDM Narrative Medical decision making narrative: Patient's COVID test is negative she is a clear lung exam. Is afebrile. Already has a inhaler prescribed to her by her primary care provider. I did tell her that I am not 100% convinced that the inhalers going to work because she does not have any wheezing today. We did discuss other potential etiology to include upper respiratory infections or potentially reflux disease. She states that she has had reflux disease in the past. Did discuss medications she can try for the above issues. She was given return precautions and follow-up instructions. She expressed understanding and agreement. Discharge Plan Departure Patient Disposition: Home Clinical Impression: Cough Instructions: Cough (Alternative Therapy), Cough Activity Restrictions/Additional Instructions: I do recommend that you use the inhaler as directed. You may also want to consi daisy using a allergy medicine such as Claritin or Nimo or Zyrtec or the generic version to these medicine. You may also want to consider using a reflux medicine such as Pepcid/famotidine. Contact your primary doctor for follow-up. Return to the emergency department for any new or worsening symptoms Prescriptions: No Action diazepam 5 mg tablet 5 mg PO DAILY Qty: 10 RF: 0 doxycycline hyclate 100 mg tablet 100 mg PO BID Qty: 20 RF: 0 hydrocodone-acetaminophen 5-325 mg tablet 1 tab PO Q6H PRN (Reason: pain) Qty: 7 RF: 0 ondansetron 4 mg tablet,disintegrating 4 mg PO Q8H PRN (Reason: nausea and vomiting) Qty: 10 RF: 0 Referrals: Maria Antonia Moser DO [Primary Care Provider] -
[2021-04-18 16:01] VITALS: BP 122/76; PULSE 78; RESP 17; O2SAT 98
== END 2021-04-18 16:02 | disposition home or self-care (01) ==
PROVIDERS: Emergency Provider Emergency Medicine; PCP Family Medicine
DX: R05 Cough (principal); Z20.822 Contact with and (suspected) exposure to COVID-19
CPT/HCPCS: 87635; 99281; 99282; C9803

== ENCOUNTER 2021-05-21 23:38 | Emergency (ER) | payer OTHER, MEDICAID, SELFPAY ==
[2021-05-21 23:41] VITALS: BP 131/76; PULSE 88; RESP 18; TEMP 37.1; O2SAT 98; BMI 39.9
--- NOTE | 2021-05-21 23:41 | DI.RAD.S_ITS ---
PROCEDURE: XR CHEST 1V INDICATIONS: SOB TECHNIQUE: One view of the chest was acquired. COMPARISON: [facility], CR, XR CHEST 1 VIEW, 04/20/2021, 19:00. [facility], CR, XR CHEST 1V, 04/13/2021, 20:27. FINDINGS: Surgical changes and devices: None. Lungs and pleura: Lungs are clear. No pleural effusions or pneumothorax. Mediastinum: Mediastinal contours appear normal. Heart size is normal. Bones and chest wall: No suspicious bony lesions. Overlying soft tissues appear unremarkable. IMPRESSION: No acute cardiopulmonary disease process. Dictated by: Roselia Judge MD, PhD on 05/22/2021 at 0:16 Approved by: Roselia Judge MD, PhD on 05/22/2021 at 0:17
[2021-05-21 23:43] VITALS: BP 131/76; PULSE 91; O2SAT 95
--- NOTE | 2021-05-21 23:51 | ED_ITS ---
HPI - General Adult General Chief complaint: Upper Respiratory Symptoms Stated complaint: chest pain/hard to breathe Time Seen by Provider: 05/21/21 23:39 Source: patient Mode of arrival: Ambulatory History of Present Illness HPI narrative: Patient is a 31-year-old female. Is here for evaluation of cough and chest discomfort. She states that the symptoms may going on for the past month. I saw her about 1 month ago for cough. Since that time she has had a telemedicine visit with her primary doctor. Was placed on antibiotics for bro nchitis. She has also been on steroids. She has been seen at another facility where she states she had chest x-rays and labs and an EKG and a full respiratory panel. She states she was told that her white blood cell count was slightly elevated however no definitive diagnosis was made. She comes the emergency department today for continued symptoms. She states that her chest is burning especially with the cough. No fevers. No congestion. Does have somewhat of a sore throat because of all the coughing. Is a nonproductive cough. No abdominal pain. Related Data Previous Rx's Medication Instructions Recorded doxycycline hyclate 100 mg tablet 100 mg PO BID #20 tab 01/17/21 hydrocodone 5 mg-acetaminophen 325 1 tab PO Q6H PRN #7 tab 02/22/21 mg tablet ondansetron 4 mg disintegrating 4 mg PO Q8H PRN #10 tab 02/22/21 tablet diazepam 5 mg tablet 5 mg PO DAILY #10 tab 04/13/21 benzonatate 100 mg capsule 100 mg PO TID PRN #30 cap 05/22/21 (Zoe Chris) Allergies Allergy/AdvReac Type Severity Reaction Status Date / Time morphine Allergy Intermediate Verified 03/20/21 17:56 Review of Systems Constitutional Constitutional: Denies fever(s) ENT Ears, Nose, Mouth, and Throat: Reports as per HPI Cardiovascular Cardiovascular: Reports as per HPI Respiratory Respiratory: Reports as per HPI Gastrointestinal Gastrointestinal: Reports system reviewed and no additional complaints, except as documented Integumentary/Breasts Skin/Breast: Reports system reviewed and no additional complaints, except as documented Hematologic/Lymphatic On Anticoagulants: No Allergic/Immunologic Allergic/Immunologic: Reports system reviewed and no additional complaints, except as documented Patient History Medical History Depression with anxiety Healthy adult Social History Smoking Status: Former smoker Smoking Status: Former smoker alcohol intake frequency: holidays/special occasions only Substance Use Type: marijuana Exam Initial Vital Signs Initial Vital Signs: Vital Signs Temperature 98.8 F 05/21/21 23:41 Pulse Rate 88 05/21/21 23:41 Respiratory Rate 18 05/21/21 23:41 Blood Pressure 131/76 05/21/21 23:41 Pulse Oximetry 98 05/21/21 23:41 Const General: cooperative, healthy appearing and comfortable HENMT Head: normal to inspection and normocephalic Resp Effort & Inspection: normal respiratory effort Auscultation: clear to auscultation bilaterally Cardio Rate: regular rate Rhythm: regular rhythm Skin General: no rashes or lesions noted Neuro General: patient alert, patient awake, patient oriented x3 and moves all extremities Extrem General: normal to inspection and capillary refill normal Course Orders Ordered: ED Orders 05/21/21 23:41 XR chest 1V Stat EKG-12 Lead Stat 05/21/21 23:48 Basic Metabolic Panel Stat Complete Blood Count AUTO DIFF Stat Troponin & CK Cardiac Panel Stat 05/21/21 23:50 COVID19 -Nasal swab/Pre-Proc Stat Discontinued Medications Benzonatate (Benzonatate 100 Mg Capsule) 100 mg PO NOW ONE Stop: 05/22/21 00:32 Vital Signs Vital signs: Vital Signs - 8 hr 05/21/21 23:41 Temperature 98.8 F Pulse Rate 88 Respiratory Rate 18 Blood Pressure 131/76 Pulse Oximetry 98 Medical Decision Making Lab Data Lab results reviewed: Yes I reviewed the patient's lab results. Result diagrams: 05/21/21 23:48 05/21/21 23:48 Labs: Lab Results 05/21/21 05/21/21 05/21/21 Range/Units 23:48 23:48 23:50 WBC 13.3 H (4.5-11.0) X10^3/uL RBC 4.50 (4.0-5.2) X10^6/uL Hgb 11.8 L (12.0-16.0) g/dL Hct 36.4 (36-46) % MCV 81.0 (80-100) fL MCH 26.3 (26-34) PG MCHC 32.4 (30-36) % RDW 15.9 H (11.6-14.8) % Plt Count 512 H (150-400) X10^3/uL Neut % (Auto) Not Reportable Lymph % (Auto) Not Reportable Gilmer % (Auto) Not Reportable Eos % (Auto) Not Reportable Baso % (Auto) Not Reportable Lymph # (Auto) Not Reportable Gilmer # (Auto) Not Reportable Baso # (Auto) Not Reportable Sodium 138 (137-145) mmol/L Potassium 4.4 (3.4-5.1) mmol/L Chloride 104 (98-107) mmol/L Carbon Dioxide 24 (22-32) mmol/L BUN 12 (7-17) mg/dL Creatinine 0.47 L (0.52-1.04) mg/dL Estimated GFR > 60.0 (>60) mL/min BUN/Creatinine Ratio 25.5 H (6-22) Glucose 95 (70-100) mg/dL Calcium 9.2 (8.4-10.2) mg/dL Total Creatine Kinase 69 (30-135) U/L CK-MB (CK-2) TNP CK-MB (CK-2) Rel Index TNP Troponin I < 0.012 (0.01-0.034) ng/mL SARS-CoV-2 (PCR) Negative (Negative) Imaging Data Chest x-ray: Radiologist's Impression: [address] [address] XRay Report Signed Patient: Jasmina Boone MR#: [id number] : 1990 Acct:[id number] Age/Sex: 31 / F Date of Service: 05/21/21 Loc: ED Accession Number: [id number] ?? Procedure: XR chest 1V Ordering Provider: Willis Madden D.O. PROCEDURE:? XR CHEST 1V ? INDICATIONS:? SOB ? TECHNIQUE:? One view of the chest was acquired.? ? COMPARISON:? [facility], CR, XR CHEST 1 VIEW, 04/20/2021, 19:00.? [facility], , XR CHEST 1V, 04/13/2021, 20:27. ? FINDINGS:? ? Surgical changes and devices:? None.? ? Lungs and pleura:? Lungs are clear.? No pleural effusions or pneumothorax.? ? Mediastinum:? Mediastinal contours appear normal.? Heart size is normal.? ? Bones and chest wall:? No suspicious bony lesions.? Overlying soft tissues appear unremarkable.? ? IMPRESSION:? No acute cardiopulmonary disease process. ? ? Dictated by: Roselia Judge MD, PhD on 05/22/2021 at 0:16 ? ? Approved by: Roselia Judge MD, PhD on 05/22/2021 at 0:17?? ECG Data Attestation: I personally reviewed and interpreted this ECG as follows: Interpretation: Sinus rhythm Ventricular rate 81 Normal axis Normal QRS Normal QTC No ST T wave changes MDM Narrative Medical decision making narrative: Lungs are clear, chest x-ray unremarkable, EKG is unremarkable, COVID is negative, troponins negative, her COVID negative. Low suspicion for pneumonia. Low suspicion for ACS. Has already been treated with antibiotics that would treat any atypical pneumonia. No indication for more steroids. Was sent home with Zoe to see if this is not help her symptoms. Advised her to follow-up with her primary doctor Discharge Plan Departure Patient Disposition: Home Clinical Impression: Cough Instructions: Cough (Alternative Therapy), Cough Activity Restrictions/Additional Instructions: Sometimes the dry cough that happens after episodes such as bronchitis can last for weeks. You have already been on antibiotics that we treat any sort of bacterial infection. I would contact your primary doctor for follow-up and return to the emergency department for any new symptoms Prescriptions: New benzonatate [Tessalon Perles] 100 mg capsule 100 mg PO TID PRN (Reason: cough) Qty: 30 RF: 0 No Action diazepam 5 mg tablet 5 mg PO DAILY Qty: 10 RF: 0 doxycycline hyclate 100 mg tablet 100 mg PO BID Qty: 20 RF: 0 hydrocodone-acetaminophen 5-325 mg tablet 1 tab PO Q6H PRN (Reason: pain) Qty: 7 RF: 0 ondansetron 4 mg tablet,disintegrating 4 mg PO Q8H PRN (Reason: nausea and vomiting) Qty: 10 RF: 0 Referrals: Maria Antonia Moser, [Primary Care Provider] -
[2021-05-22] VITALS: PULSE 86; O2SAT 97
[2021-05-22 00:01] VITALS: BP 115/72; PULSE 84; O2SAT 99
[2021-05-22 00:06] LABS: BUN Creatinine Ratio 25.5 (6-22); Blood Urea Nitrogen 12 mg/dL (7-17); Calcium 9.2 mg/dL (8.4-10.2); Carbon Dioxide 24 mmol/L (22-32); Chloride 104 mmol/L (98-107); Creatine Kinase 69 U/L (30-135); Estimated Glomerular Filt Rate > 60.0 mL/min (>60); Glucose 95 mg/dL (70-100); Sodium 138 mmol/L (137-145)
[2021-05-22 00:09] LABS: Hematocrit 36.4 % (36-46); Hemoglobin 11.8 g/dL (12.0-16.0); Mean Corpuscular HGB Conc 32.4 % (30-36); Mean Corpuscular Hemoglobin 26.3 PG (26-34); Platelet Count 512 X10^3/uL (150-400); Red Cell Distribution Width 15.9 % (11.6-14.8); White Blood Cell Count 13.3 X10^3/uL (4.5-11.0)
[2021-05-22 00:11] LABS: HEMOLYSIS 62 (0-50); Potassium 4.4 mmol/L (3.4-5.1)
[2021-05-22 00:12] LABS: Add Manual Diff / Slide Review YES
[2021-05-22 00:14] LABS: COVID19 -Nasal RAPID Negative (Negative)
[2021-05-22 00:18] LABS: Troponin I < 0.012 ng/mL (0.01-0.034)
[2021-05-22 00:30] VITALS: PULSE 79; O2SAT 100
[2021-05-22 00:31] VITALS: BP 103/71; PULSE 82; O2SAT 99
[2021-05-22] MEDS: BENZONATATE 100 MG CAPSULE PO (00:35)
[2021-05-22 01:22] LABS: Neutrophils Absolute Manual 5852 /uL (3000-5900); Total Cells Counted 100
[2021-05-22 01:23] LABS: Anisocytosis 1+
== END 2021-05-22 00:47 | disposition home or self-care (01) ==
PROVIDERS: Emergency Provider Emergency Medicine; PCP Family Medicine
DX: R05.9 Cough, unspecified (principal); R07.9 Chest pain, unspecified; Z20.822 Contact with and (suspected) exposure to COVID-19
CPT/HCPCS: 36415; 71045; 80048; 82550; 82553; 84484; 85007; 85025; 87635; 99284; C9803